=== PATIENT | female | born 1985 | race African-American/Black ===

== ENCOUNTER 2016-07-28 12:12 | Emergency (ER) | payer OTHER ==
[~2016-07-28] VITALS: Ht 170.2 cm; Wt 83.9 kg
[~2016-07-28 12:12] MED LIST: ALBUTEROL0.09 MG/A1 INH; ALDACTONE25 MG PO; ALPRAZOLAM0.5 M3 PO; AMBIEN (MONOGRAP5 MG PO; AMLODIPINE BESY10 M1 PO; AUGMENTIN 875875 MG PO; CATAPRES-TTS 11 EACH TOP; CHLORTHALIDONE25 M1 PO; CIPRO 500MG (E500 MG PO; CLARINEX 5 MG TA5 MG PO; COLACE100 MG PO; DILAUDID2 MG PO; DURAGESIC25 MCG TOP; FERROUS SULFATE65 MG PO; FIORICET 325 MG1 TAB PO; FOLIC ACID 1 MG PO; HYDROMORPHONE HC2 MG PO; IMMUNE GLOBULIN SC; IMURAN 50MG TAB50 MG PO; LABETALOL HCL200 MG PO; LISINOPRIL40 M1 PO; LUNESTA2 MG PO; METHOTREXATE25 MG/M2 INJ; MIRALAX17 GM PO; NASONEX0.05 MG/Ac NAS; OXYCODONE HYDRO10 M1 PO; OXYCODONE5 M1 PO; PERCOCET 325 MG1 TA2 PO; PREDNISONE 20MG20 MG PO; PREDNISONE10 MG PO; PREDNISONE5 MG PO; PROTONIX40 M3 PO; ROBITUSSIN W/CO10 ML PO; SPIRONOLACTONE50 MG PO; Senokot S PO; TESSALON PERLE100 MG PO; TRAMADOL HCL50 M1 PO; VITAMIN D50000 IU PO; ZOFRAN ODT4 MG SL; ZOFRAN4 M1 PO; ZOFRAN4 M1 SL
--- NOTE | 2016-07-28 13:00 | ED HEADACHE COMPLAINT ---
History of Present Illness General Chief Complaint: Headache Stated Complaint: MIGRANE Source: patient, family, old records Exam Limitations: no limitations Vital Signs & Intake/Output Vital Signs & Intake/Output ED Intake and Output 07/29 0000 07/28 1200 Intake Total 1100 Output Total Balance 1100 Intake, IV 1100 Patient 185 lb Weight Weight Reported by Patient Measurement Method Allergies Coded Allergies: glycine (From [employer] [facility]) (UNKNOWN 04/29/15) immune globulin,alpha (IgA) greater than 50 mcg/mL (From [employer] [facility]) (UNKNOWN 04/29) immune globulin,gamma (IgG) human (From [employer] [facility]) (UNKNOWN 04/29/15) zolpidem (From [facility]) (Intermediate, OUT OF IT FOR 2 DAYS 04/29/15) Reconcile Medications Amlodipine Besylate 10 MG TABLET 1 TAB PO DAILY BP (Reported) Butalb/Acetaminophen/Caffeine (Fioricet 50-300-40 MG Capsule) 50 MG-300 MG-40 MG CAPSULE 1 CAP PO Q4P PRN HEADACHE (Reported) Butalb/Acetaminophen/Caffeine (Fioricet 50-300-40 MG Capsule) 50 MG-300 MG-40 MG CAPSULE 1 TAB PO Q6HR PRN HEADACHE Chlorthalidone 25 MG TABLET 1 TAB PO DAILY BP (Reported) Clonidine Tts-1 (Catapres-Tts 1) 0.1 MG/24 HOUR PATCH.TDWK 1 PAT TOP QW BP ( Reported) Dexlansoprazole (Dexilant) 60 MG CAP.DR.BP 1 CAP PO DAILY GI (Reported) Immun Glob G(IgG)/Pro/Iga 0-50 (Hizentra 10 Gram/50 Ml Vial) 10 GRAM/50 ML (20 % ) VIAL 50 ML SC QWED AUTO IMMUNE (Reported) Lisinopril 40 MG TABLET 1 TAB PO DAILY BP (Reported) Pantoprazole Sodium (Protonix) 40 MG TABLET.DR 1 TAB PO DAILY GI (Reported) Prednisone 10 MG TABLET 1 TAB PO DAILY POLYMYOSITIS (Reported) Spironolactone (Aldactone) 25 MG TABLET 1 TAB PO DAILY BP (Reported) Tramadol HCl 50 MG TABLET 2 TAB PO BIDP PRN PAIN (Reported) Triage Note: 31 Y/O FEMALE C/O MIGRAINE HEADACHE SINCE YESTERDAY; NO RELIEF WITH 50MG TRAMADOL, TAKEN THIS MORNING SHORTLY AFTER WAKING UP. PT REPORTS NAUSEA THROUGHOUT THE DAY TODAY AND PHOTOPHOBIA. ALSO STATES SOUNDS ARE BOTHERING HER. SPEAKING CLEARLY WITH NO DEFICITS NOTED. AFEBRILE. Triage Nurses Notes Reviewed? yes Onset: Abrupt Duration: day(s): (2), constant Timing: recent history Quality/Severity: moderate, achy Severity Numbers: 9 Head Injury Location: global No Modifying Factors: none Associated Symptoms: photosensitivity, : No Patient currently breastfeeds: No HPI: This is 31-year-old female with history of migraines presents to ER for evaluation of a generalized headache nonradiating since last night. She took her tramadol last night and today without improvement. No recent fall or head trauma. Patient reports to photosensitivity nausea and loud noises make it worse. She denies loss consciousness nausea neck or back pain. She reports to nausea denies vomiting. She states this feels like her migraines in the past. No modifying factors or associated symptoms otherwise no vision changes no rashes to her skin (JACQUI RAMIREZ) Past History Travel History Traveled to [place] past 21 day No Medical History Any Pertinent Medical History? 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 Hx Contributory? No (JACQUI RAMIREZ) Review of Systems Review of Systems Constitutional: Reports: see HPI. All Other Systems: Reviewed and Negative Comments Review of systems: See HPI, All other systems negative. Constitutional, no chills no fever, no malaise HEENT: No visual changes no sore throat no congestion, no ear pain Cardiovascular: No chest pain , no palpitation Skin: no rashes, no change in skin Respiratory: No dyspnea no cough no sputum GI: No nausea no vomiting, no diarrhea, : No dysuria Muscle skeletal: No joint pain, no joint swelling, no back pain, no neck pain, Neurologic: No numbness no confusion, headache Psych: No stress Heme/endocrine: No bruising no bleeding Immunology: No lymphadenopathy (JACQUI RAMIREZ) Physical Exam Physical Exam Cranial Nerves: normal hearing, normal speech, PERRL Core Measures Severe Sepsis Present: No Septic Shock Present: No (JACQUI RAMIREZ) Progress Differential Diagnosis: cluster GIMENEZ, encephalitis, IC mass/tumor, intracranial Hem., migraine GIMENEZ, musculoskeletal pain, sinusitis, tension GIMENEZ, temporal arteritis, pseudotumor Plan of Care: Current Medications Sig/Lili Start time Last Medication Dose Stop Time Status Admin Acetaminophen 1,000 MG ONCE ONE 07/28 1245 UNVr 07/28 (Ofirmev) 07/28 1259 1256 N/A 1 UNIT (No Carrier) Diphenhydramine HCl 50 MG ONCE ONE 07/28 1245 UNVr 07/28 (Benadryl) 07/28 1246 1256 Ketorolac 30 MG ONCE ONE 07/28 1245 UNVr Tromethamine 07/28 1246 (Toradol) Metoclopramide HCl 10 MG ONCE ONE 07/28 1245 UNVr 07/28 (Reglan) 07/28 1246 1256 Sodium Chloride 1,000 ML BOLUS ONE 07/28 1245 UNVr 07/28 (Normal Saline 0.9%) 07/28 1344 1256 Patient medicated with Reglan Toradol Benadryl IV fluids stating "that's a good do anything IV morphine Repeat evaluation patient reports symptoms are not improved morphine 4 mg IV ordered IV fluids continued run case discussed with Dr. lal Patient reports to feeling improved, she is requesting go home she is feeling much better I discussed with her need to follow-up with her primary care physician's this week she states she has a neurologist in [place] whom she will follow up with prescription for fioricet provided answered all her questions she feels comfortable this plan and return precautions were discussed with patient at length. Patient denies any symptoms at this time on discharge (JACQUI RMAIREZ) Departure Departure Time of Disposition: 2 Disposition: HOME OR SELF CARE Condition: Stable Clinical Impression Primary Impression: Migraine Referrals: BHAVIN ESCOBAR,STEVE Taylor (PCP/Family) Additional Instructions: follow up with your neurologist as well as your pmd. fioricet for your headaches. continue taking your tramadol for pain. return to the er with any concerns this was sent to [facility] Departure Forms: Customer Survey General Discharge Information Prescriptions: Current Visit Scripts Butalb/Acetaminophen/Caffeine (Fioricet 50-300-40 MG Capsule) 1 TAB PO Q6HR PRN HEADACHE #12 TAB (CAROLA CAMACHO,JACQUI) PA/MARINE RESOURCE ECONOMIST Co-Sign Statement Statement: ED Attending supervision documentation- I saw and evaluated the patient. I have also reviewed all the pertinent lab results and diagnostic results. I agree with the findings and the plan of care as documented in the PA's/MARINE RESOURCE ECONOMIST's documentation. X I have reviewed the ED Record and agree with the PA's/MARINE RESOURCE ECONOMIST's documentation. [] Additions or exceptions (if any) to the PAs/MARINE RESOURCE ECONOMIST's note and plan are summarized below: [] (GENARO ESCOBAR,RIDDHI)
[2016-07-28] MEDS ORDERED: DEXILANT60 M1 PO (14:29)
[2016-07-28] MEDS ORDERED: FIORICET 50-301 EACH PO ×2 (14:31→16:03)
[2016-07-28] MEDS ORDERED: PREDNISONE10 M2 PO (14:34)
[2016-07-28 16:07] VITALS: BP 164/110
[2016-08-18] MEDS ORDERED: VITAMIN D2000 UNIT PO (18:53)
== END 2016-07-28 16:13 ==
LOC: ERH 12:12
DX: G43.909 Migraine, unspecified, not intractable, without status migrainosus (principal)
CPT/HCPCS: 96374; 96375; J0131; J1200; J1885; J2765; J2930

== ENCOUNTER 2017-03-18 11:27 | Emergency (ER) | payer OTHER ==
[~2017-03-18] VITALS: Ht 172.7 cm; Wt 107.0 kg
[~2017-03-18 11:27] MED LIST changes: +DEXILANT60 M1 PO; +FIORICET 50-301 EACH PO; +OXYCODONE-ACET1 EACH PO; +PREDNISONE10 M2 PO; +VITAMIN D2000 UNIT PO; +ZOFRAN ODT4 M1 PO
--- NOTE | 2017-03-18 12:16 | ED CARDIAC/CP/PALPITATIONS ---
History of Present Illness General Chief Complaint: General Adult Stated Complaint: SIB MD FOR SOB PER PT CHEST FEELS HEAVY Source: patient Exam Limitations: no limitations Vital Signs & Intake/Output Vital Signs & Intake/Output Vital Signs Date Time Temp Pulse Resp B/P B/P Pulse O2 O2 Flow FiO2 Mean Ox Delivery Rate 03/18 1621 141 20 137/88 99 Room Air Room Air 03/18 1620 98.8 141 20 137/88 03/18 1415 136 18 144/94 98 Room Air 03/18 1330 98.8 124 18 126/85 100 Room Air 03/18 1146 99.2 139 20 122/81 99 Room Air 03/18 1131 79 95 Room Air Allergies Coded Allergies: glycine (From [facility]) (UNKNOWN 08/18/16) immune globulin,alpha (IgA) greater than 50 mcg/mL (From [facility]) (UNKNOWN 08/18) immune globulin,gamma (IgG) human (From [facility]) (UNKNOWN 08/18/16) zolpidem (From [facility]) (Intermediate, OUT OF IT FOR 2 DAYS 08/18/16) Reconcile Medications Labetalol HCl (Unknown Strength) TABLET (Unknown Dose) PO BID HEART (Reported ) Vit No.130/Iron/FA ( Tablet) 27 MG IRON-800 MCG TABLET 1 TAB PO DAILY (Reported) Tramadol HCl 50 MG TABLET 2 TAB PO BIDP PRN PAIN (Reported) Triage Note: PT STATES SHE HAS BEEN FEELING SOB AND HER HEART POUNDING. EKG IN TRIAGE NOTED TO BE A-FIB HR IN THE 140'S PT PLACED IN ROOM 6. NO HX OF HEART PROBLEMS Triage Nurses Notes Reviewed? yes Onset: Abrupt Duration: constant Timing: recent history Quality/Severity: moderate, pressure Location: substernal Activities at Onset: none : Yes Patient currently breastfeeds: No HPI: Patient is a 32-year-old female with a past medical history of hypertension who is compliant with labetalol and chronic pain currently on tramadol since emergency room saying that at rest yesterday patient had acute onset of heart palpitations chest heaviness and shortness of breath symptoms that persist for past 24 hours Patient does state that yesterday she had a routine follow-up with her OB who is out of [facility] however her symptoms began after this appointment, Patient denies any fevers chills hemoptysis or leg swelling abdominal pain nausea vomiting dysuria vaginal bleeding Patient has never had similar episodes of symptoms in the past (Silvio Geller) Past History Travel History Traveled to [place] past 21 day No Medical History Any Pertinent Medical History? 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 Hx Contributory? No (Silvio Geller) Review of Systems Review of Systems Constitutional: Reports: no symptoms. EENTM: Reports: no symptoms. Respiratory: Reports: see HPI. Cardiovascular: Reports: see HPI. GI: Reports: no symptoms. Genitourinary: Reports: no symptoms. Musculoskeletal: Reports: no symptoms. Skin: Reports: no symptoms. Neurological/Psychological: Reports: no symptoms. Hematologic/Endocrine: Reports: no symptoms. Immunologic/Allergic: Reports: no symptoms. All Other Systems: Reviewed and Negative (Silvio Geller) Physical Exam Physical Exam General Appearance: no apparent distress, alert Head: atraumatic Eyes: Bilateral: normal appearance, PERRL. Ears, Nose, Throat: normal pharynx, normal ENT inspection Neck: normal inspection Respiratory: normal breath sounds, chest non-tender, no respiratory distress Cardiovascular: tachycardia, irregularly irregular Peripheral Pulses: 2+ radial (R) Gastrointestinal: normal bowel sounds, soft, non-tender Extremities: normal inspection, normal capillary refill, normal range of motion, no edema Skin: intact, normal color, warm/dry Core Measures ACS in differential dx? Yes CVA/TIA Diagnosis No Sepsis Present: No Sepsis Focused Exam Completed? No (Silvio Geller) Progress Differential Diagnosis: AMI, aortic dissection, atrial fibrillation, cholecystitis, CHF/pulm edema, costochondritis, hyperkalemia, hypovolemia, hyperthyroid, hyperventilation, intracranial hemorrhage, musculoskeletal pain, myocarditis, pancreatitis, pericarditis, pneumonia, pneumothorax, PSVT, pulmonary embolism, PUD/GERD, PVCs/PACs, respiratory failure, rib fracture, sepsis, unstable angina, V-fib/V-Tach, WPW syndrome, POLYMYOSCITIS Plan of Care: Orders Procedure Date/time Status Regular Diet 03/18 D Active Pathway - chart 03/18 1450 Active House Staff 03/18 1450 Active Patient Data 03/18 1450 Active Code Status 03/18 1450 Active Add-on Test (ER Only) 03/18 1448 Active Misc Message 03/18 1431 Active ED Holding Orders 03/18 1431 Active Vital Signs 03/18 1431 Active Code Status 03/18 1431 Complete Patient Data 03/18 1420 Active Intake & Output 03/18 1417 Active URINALYSIS 03/18 1405 Complete TROPONIN LEVEL 03/18 1400 Complete LDH (LACT ACID DEHYDROGENASE) 03/18 1400 Complete COMPREHENSIVE METABOLIC PANEL 03/18 1400 Complete CREATINE PHOSPHOKINASE 03/18 1400 Complete Telemetry/Supervisor Propellant Charge Loading 03/18 1338 Active THYROID STIMULATING HORMONE 03/18 1338 Complete FREE T4 03/18 1338 Complete PARTIAL THROMBOPLASTIN TIME 03/18 1337 Complete PROTHROMBIN TIME 03/18 1337 Complete D-DIMER 03/18 1337 Complete RAPID VIRAL INFLUENZA A 03/18 1320 Active CBC WITHOUT DIFFERENTIAL 03/18 1320 Complete EKG 03/18 1320 Active EKG 03/18 1129 Active VTE Mechanical Prophylaxis 03/18 UNK Active Telemetry/Supervisor Propellant Charge Loading 03/18 UNK Active OB: Monitoring 03/18 UNK Active Laboratory Tests 03/18/17 1430: Urinalysis LIGHT H, Urine Color YEL, Urine Clarity HAZY H, Urine pH 7.5, Ur Specific [place] 1.020, Urine Protein NEG, Urine Ketones NEG, Urine Nitrite NEG, Urine Bilirubin NEG, Urine Urobilinogen 0.2, Ur Leukocyte Esterase SMALL H, Ur Microscopic SEDIMENT EXAMINED, Urine RBC 1-3, Urine WBC 3-5 H, Ur Epithelial Cells MANY H, Urine Bacteria FEW H, Urine Mucus RARE, Urine Hemoglobin NEG, Urine Glucose NEG 03/18/17 1400: Anion Gap 12, Estimated GFR > 60, BUN/Creatinine Ratio 12.0, Glucose 89, Calcium 8.6, Total Bilirubin 0.3, AST 40 H, ALT 51, Alkaline Phosphatase 78, Lactate Dehydrogenase 719 H, Creatine Kinase 910 H, Troponin I 0.02, Total Protein 6.3 , Albumin 3.3 L, Globulin 3.0, Albumin/Globulin Ratio 1.1, TSH 2.890, Free T4 0.62 L, PT 11.2, INR 1.07, APTT 29, D-Dimer High Sensitivty < 200, CBC w Diff NO MAN DIFF REQ, RBC 4.15 L, MCV 91.1, MCH 31.2 H, RDW 14.4, MPV 9.2, Gran % 70.3, Lymphocytes % 21.3, Monocytes % 6.5, Eosinophils % 1.6, Basophils % 0.3, Absolute Granulocytes 4.8, Absolute Lymphocytes 1.4, Absolute Monocytes 0.4, Absolute Eosinophils 0.1, Absolute Basophils 0, PUBS MCHC 34.3 03/18/17 1320: Sodium Cancelled, Potassium Cancelled, Chloride Cancelled, Carbon Dioxide Cancelled, Anion Gap Cancelled, BUN Cancelled, Creatinine Cancelled, BUN/ Creatinine Ratio Cancelled, Glucose Cancelled, Calcium Cancelled, Total Bilirubin Cancelled, AST Cancelled, ALT Cancelled, Alkaline Phosphatase Cancelled, Troponin I Cancelled, Total Protein Cancelled, Albumin Cancelled, Globulin Cancelled, Albumin/Globulin Ratio Cancelled Microbiology 03/18 1320 NASOPHARYN: Influenza Virus A & B Rapid Smear - ORD On initial examination patient was resting comfortably at bedside patient after initial EKG showed concerns of rapid atrial fibrillation and was patient was initially admitted associated IV fluid resuscitation repeat EKG shows persistent atrial fibrillation Discussed patient with Dr. Coleman who advised that in the emergency room that no pharmacological or cardioversion intervention to be done at this time He also advised to The d-dimer be evaluated and if elevated patient to receive bilateral Doppler ultrasounds which the d-dimer was negative in the emergency room, telemetry initially was placed patient was advised to be admitted under Dr. Coleman's service Again prior to admission in the emergency room he advised not to have pharmacological intervention be admitted administered to patient Discussed disposition plan with Dr. Phoenix who also evaluated the patient is aware Discussed admission with patient was aware and has no questions and agrees Initial ED EKG: ATRIAL FIBRILLATION, 141 BPM, Repeat EKG: unchanged (Silvio Geller) Comments: 03/18/2017 5:06:34 PM patient is being transferred to [facility] of the request of Dr. Colmean given the and associated complication of rapid atrial fibrillation. (Lizett ESCOBAR,Radhames Payne) Departure Departure Disposition: STILL A PATIENT Condition: Guarded Clinical Impression Primary Impression: Rapid atrial fibrillation Secondary Impressions: Chest pain Referrals: Kojo ESCOBAR,Nandini Taylor (PCP/Family) Departure Forms: Customer Survey General Discharge Information Admission Note Spoke With: Jared ESCOBAR PHD,Reynaldo Taylor Documentation of Exam: Documentation of any treatments & extenuating circumstances including Concerns Regarding Discharge (functional status, medication knowledge or non-compliance, living conditions, etc.) that warrant an admission rather than observation: [ Patient requires telemetry admission repeat labs repeat EKG IV fluid resuscitation possible anticoagulation or cardioversion repeat troponin cardiology consultation PAPER NOVELTY MAKER consultation] (Silvio Geller) PA/DISABILITY REPRESENTATIVE Co-Sign Statement Statement: ED Attending supervision documentation- [x] I saw and evaluated the patient. I have also reviewed all the pertinent lab results and diagnostic results. I agree with the findings and the plan of care as documented in the PA's/DISABILITY REPRESENTATIVE's documentation. Patient presents for evaluation of dyspnea, chest heaviness and palpitations. Physical examination reveals a rapid irregular heart rate. Patient is also . [] I have reviewed the ED Record and agree with the PA's/DISABILITY REPRESENTATIVE's documentation. [] Additions or exceptions (if any) to the PAs/DISABILITY REPRESENTATIVE's note and plan are summarized below: [] (Lizett ESCOBAR,Radhames Payne) Critical Care Note Critical Care Note Critical Care Time: 30-74 min (Silvio Geller)
[2017-03-18] MEDS ORDERED: LABETALOL HCL200 M1 PO (12:52)
[2017-03-18] MEDS ORDERED: PRENATAL TABLE1 EAC2 PO (12:53)
[2017-03-18 14:23] LABS: ABSOLUTE BASOPHIL COUNT 0 /CUMM (0.0-0.2); ABSOLUTE EOSINOPHIL COUNT 0.1 /CUMM (0.0-0.7); ABSOLUTE GRANULOCYTE CT 4.8 /CUMM (1.4-6.5); ABSOLUTE LYMPH COUNT 1.4 /CUMM (1.2-3.4); ABSOLUTE MONOCYTE COUNT 0.4 /CUMM (0.10-0.60); BASOPHIL % 0.3 % (0.0-2.0); EOSINOPHIL % 1.6 % (0-5); GRANULOCYTE % 70.3 % (42.2-75.2); HEMATOCRIT 37.8 % (37-47); MEAN CORPUSCULAR HGB 31.2 PG (27.0-31.0); MEAN CORPUSCULAR HGB CONC 34.3 G/DL (33.0-37.0); MEAN CORPUSCULAR VOLUME 91.1 FL (81.0-99.0); MEAN PLATELET VOLUME 9.2 FL (7.4-10.4); PLATELET COUNT 203 /CUMM (130-400); RBC DISTRIBUTION WIDTH 14.4 % (11.5-14.5); RED BLOOD CELL CT 4.15 /CUMM (4.20-5.40); WHITE BLOOD CELL COUNT 6.8 /CUMM (4.8-10.8)
[2017-03-18 14:27] LABS: PT 11.2 SEC (9.4-12.5); PTT 29 SEC (25-37)
--- NOTE | 2017-03-18 14:36 | History & Physical ---
[facility] Information and [facility] Statement: I have seen and personally examined LUCHO FLORES and documented this H&P. The patient is a 32 year old F who presented with a patient stated chief complaint of [TACHYCARDIA]. Source of Information: patient Exam Limitations: no limitations History of Present Illness: Patient is a 32-year-old female with significant past medical history of hypertension, autoimmune disorder, presented with chief complaints of palpitation, shortness of breath, fainting spells since last 1 day. 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 She was completely comfortable and evaluation at the office was completely normal. Afterwards she started feeling palpitation, shortness of breath, generalized weakness with fainting spells. She went to the mall, afterwards, but she was not able to cope with herself. The palpitation was constant, associated with shortness of breath. She did not tried any medicine and rested at home. She slept well without any difficulty, though she was not able to lie flat. After waking up in the morning she still had palpitation and weakness. So she came to the [facility]. Of note, she is having history of Sjogrens syndrome, and was on azathioprine, which she is not using since last 30 days. Her probation and parole officer is aware about that. She constantly have back pain and was told to have prolapse vertebral disc. She is on tramadol for pain. She denies for any abdominal cramps, bleeding from the vagina, nausea, vomiting, fever, chills, chest pain. Personal history -she lives with the family. Denies smoking, alcohol abuse, illicit drug abuse. Obstretric history -she is 3, para 2. Denies for any / miscarriage. She had history of preeclampsia during her first ,needed delivery. Past medical history of- Sjogrens syndrome Migraine headache Hypertension Polymyositis(2011)-followed by Dr. Alesia Mcbride -treated by prednisone/ methotrexate 20 mgs once a week and even needed IVIG, which resulted in a septic meningitis(2013), Rituximab; Hyzintra(Azthioprine) Rayanauds phenomena -Nitroglycerine oint GERD Fibromyalgia Lupus Following pain management clinic for generalized bodyache Allergies/Medications Allergies: Coded Allergies: glycine (From [employer]) (UNKNOWN 08/18/16) immune globulin,alpha (IgA) greater than 50 mcg/mL (From [employer]) (UNKNOWN 08/18) immune globulin,gamma (IgG) human (From [employer]) (UNKNOWN 08/18/16) zolpidem (From Ambien) (Intermediate, OUT OF IT FOR 2 DAYS 08/18/16) Home Med list Labetalol HCl (Unknown Strength) TABLET (Unknown Dose) PO BID HEART (Reported ) Vit No.130/Iron/FA ( Tablet) 27 MG IRON-800 MCG TABLET 1 TAB PO DAILY (Reported) Tramadol HCl 50 MG TABLET 2 TAB PO BIDP PRN PAIN (Reported) Past History Travel History Traveled to [place] past 21 day No Medical History Neurological: MIGRAINES ASEPTIC MENINGITIS EENT: NONE Cardiovascular: hypertension Respiratory: NONE Gastrointestinal: NONE Hepatic: NONE Renal: NONE Musculoskeletal: fibromyalgia Psychiatric: NONE Endocrine: RAYNAUDS Blood Disorders: LUPUS, REYNAUDS, POLYMYOSITIS,DERMATOMYOSI TIS DERMATITIS IMMUNE DISORDER Cancer(s): NONE 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 Psychosocial History Who Do You Live With? child Services at Home: None Primary Language: Romanian ETOH Use: denies use Illicit Drug Use: denies illicit drug use Functional Ability ADLs Independent: dressing, eating, toileting, bathing. Ambulation: independent IADLs Independent: shopping, housework, finances, food prep, telephone, transportation , medication admin. Review of Systems Review of Systems Constitutional: Reports: no symptoms, malaise, weakness. Cardiovascular: Reports: orthopena, palpitations, syncope. Respiratory: Reports: short of breath. Genitourinary: Reports: no symptoms. Musculoskeletal: Reports: back pain. Skin: Reports: no symptoms. Neurological/Psychological: Reports: paresthesia. Denies: confusion, numbness. Exam & Diagnostic Data Last 24 Hrs of Vital Signs/I&O Vital Signs Date Time Temp Pulse Resp B/P B/P Pulse O2 O2 Flow FiO2 Mean Ox Delivery Rate 03/18 1415 136 18 144/94 98 Room Air 03/18 1330 98.8 124 18 126/85 100 Room Air 03/18 1146 99.2 139 20 122/81 99 Room Air 03/18 1131 79 95 Room Air Intake & Output 03/18 1600 03/18 0800 03/18 0000 Intake Total Output Total 250 Balance -250 Output, Urine 250 Patient 107.048 kg Weight Weight Reported by Patient Measurement Method Physical Exam General Appearance Alert, Oriented X3, Cooperative, No Acute Distress Skin No Rashes, No Breakdown, No Significant Lesion HEENT Atraumatic, PERRLA, EOMI Neck No JVD, increased neck pulsation Cardiovascular Normal S1, Normal S2, Gallops, irregular rate Lungs Clear to Auscultation, Normal Air Movement Abdomen Soft, distended, movements were felt. Neurological Normal Speech, Normal Tone, Sensation Intact, Cranial Nerves 3-12 NL, Reflexes 2+ Extremities No Clubbing, No Cyanosis, No Edema, Normal Pulses Vascular Normal Pulses, Pulses Symmetrical Last 24 Hrs of Labs/Gordon: Laboratory Tests 03/18/17 1430: Urine Color Pending, Urine Clarity Pending, Urine pH Pending, Ur Specific [place] Pending, Urine Protein Pending, Urine Ketones Pending, Urine Nitrite Pending, Urine Bilirubin Pending, Urine Urobilinogen Pending, Ur Leukocyte Esterase Pending, Ur Microscopic Pending, Urine Hemoglobin Pending, Urine Glucose Pending 03/18/17 1400: Sodium Pending, Potassium Pending, Chloride Pending, Carbon Dioxide Pending, Anion Gap Pending, BUN Pending, Creatinine Pending, BUN/Creatinine Ratio Pending , Glucose Pending, Calcium Pending, Total Bilirubin Pending, AST Pending, ALT Pending, Alkaline Phosphatase Pending, Troponin I Pending, Total Protein Pending , Albumin Pending, Globulin Pending, Albumin/Globulin Ratio Pending, TSH Pending , Free T4 Pending, PT 11.2, INR 1.07, APTT 29, D-Dimer High Sensitivty < 200, CBC w Diff NO MAN DIFF REQ, RBC 4.15 L, MCV 91.1, MCH 31.2 H, RDW 14.4, MPV 9.2, Gran % 70.3, Lymphocytes % 21.3, Monocytes % 6.5, Eosinophils % 1.6, Basophils % 0.3, Absolute Granulocytes 4.8, Absolute Lymphocytes 1.4, Absolute Monocytes 0.4, Absolute Eosinophils 0.1, Absolute Basophils 0, PUBS MCHC 34.3 03/18/17 1320: Sodium Cancelled, Potassium Cancelled, Chloride Cancelled, Carbon Dioxide Cancelled, Anion Gap Cancelled, BUN Cancelled, Creatinine Cancelled, BUN/ Creatinine Ratio Cancelled, Glucose Cancelled, Calcium Cancelled, Total Bilirubin Cancelled, AST Cancelled, ALT Cancelled, Alkaline Phosphatase Cancelled, Troponin I Cancelled, Total Protein Cancelled, Albumin Cancelled, Globulin Cancelled, Albumin/Globulin Ratio Cancelled Microbiology 03/18 1320 NASOPHARYN: Influenza Virus A & B Rapid Smear - ORD Assessment/Plan Assessment: Patient is a 32-year-old female with significant past medical history of hypertension, autoimmune disorder, currently in third trimester(28 weeks ) presented with chief complaints of palpitation, shortness of breath, fainting spells since last 1 day. ED course -patient was having palpitation and findings spells while normal activity. On examination, chest bilateral clear, heart S1, S2 normal, no bilateral extremity edema, abdomen distended, activity noted. Blood workup shows blood count within normal limits, electrolyte was within normal limits, thyroid profile shows TSH 2.890, free T4 .62, urine showed WBC 3-5, coagulation profile was normal, d-dimer less than 200. EKG was done which showed evidence of atrial fibrillation with increased heart rate in 140bpm.It was decided to admit the patient into telemetry floor for further evaluation and management. Discuss with Dr. Coleman, and decided to stop labetalol and give injection Lopressor 5 milligrams IV. Her right heart rate came down from 140 to 126. She felt improved, though remained in persistent atrial fibrillation. As the patient was following [facility], for a high-risk and she was well evaluated yesterday.She started having her symptoms afterwards.We contacted Dr. Moses.The evaluation was done which showed the heart rate is 140-160, and there was constant change/arrhythmia. It was decided that patient need constant monitoring, in a high risk unit which is not available at [facility]. We discussed Dr. TODD, [employer] resident over the phone, through [employer]. We transferred the patient to [facility] high-risk unit. As Ranked By This Provider Problem List: 1. Atrial fibrillation 2. cardiac arrhythmia Core Measures/Misc (11/21) Acute Coronary Syndrome ACS Diagnosis: No Congestive Heart Failure Congestive Heart Failure Diagnosis No Cerebrovascular Accident CVA/TIA Diagnosis: No VTE (View Protocol) VTE Risk Factors / No Mechanical VTE Prophylaxis d/t N/A MechProphylax Ordered No VTE Pharm Prophylaxis d/t Other Sepsis (View protocol) Sepsis Present: No
--- NOTE | 2017-03-18 17:14 | Cons- Cardiology ---
General Information and HPI Consulting Request Date of Consult: 03/18/17 Requested By: Jared ESCOBAR PHD,Reynaldo Taylor History of Present Illness: This patient is a 32 year old female with history of hypertension, rheumatoid arthritis, Sjogren's syndrome and fibromyalgia who presented to [facility] with rapid palpitations, lightheadedness and mild shortness of breath. She also has mild chest tightness. She was discovered to be in atrial fibrillation with increased heart rate in the 140bpm range. The patient is 28 weeks and and has [facility] . The patient is confident that her symptoms began yesterday and she has not noted any abnormalities related to her . We contacted Dr Moses of [facility] to offer guidance and it was felt that this patient should be sent to [facility], high risk department for further care. It was felt that beta blockers were okay to use and a small dose of Lopressor 5mg IV was given to help control her heart rate. The patient feels improved but remains in atrial fibrillation. Allergies/Medications Allergies: Coded Allergies: glycine (From [employer]) (UNKNOWN 08/18/16) immune globulin,alpha (IgA) greater than 50 mcg/mL (From [employer]) (UNKNOWN 08/18) immune globulin,gamma (IgG) human (From [employer]) (UNKNOWN 08/18/16) zolpidem (From Ambien) (Intermediate, OUT OF IT FOR 2 DAYS 08/18/16) Home Med List: Labetalol HCl (Unknown Strength) TABLET (Unknown Dose) PO BID HEART (Reported ) Vit No.130/Iron/FA ( Tablet) 27 MG IRON-800 MCG TABLET 1 TAB PO DAILY (Reported) Tramadol HCl 50 MG TABLET 2 TAB PO BIDP PRN PAIN (Reported) Review of Systems Review of Systems: A review of systems is unremarkable. 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 Psychosocial History Who Do You Live With? child Services at Home: None Primary Language: Vietnamese ETOH Use: denies use Illicit Drug Use: denies illicit drug use Functional Ability ADLs Independent: dressing, eating, toileting, bathing. Ambulation: independent IADLs Independent: shopping, housework, finances, food prep, telephone, transportation , medication admin. Exam & Diagnostic Data Vital Signs and I&O Vital Signs Date Time Temp Pulse Resp B/P B/P Pulse O2 O2 Flow FiO2 Mean Ox Delivery Rate 03/18 1621 141 20 137/88 99 Room Air Room Air 03/18 1620 98.8 141 20 137/88 03/18 1415 136 18 144/94 98 Room Air 03/18 1330 98.8 124 18 126/85 100 Room Air 03/18 1146 99.2 139 20 122/81 99 Room Air 03/18 1131 79 95 Room Air Intake & Output 03/18 1600 03/18 0800 03/18 0000 03/17 1600 03/17 0800 03/17 0000 Intake Total Output Total 250 Balance -250 Output, Urine 250 Patient 236 lb Weight Weight Reported by Patient Measurement Method Physical Exam: General: WD/WN female in NAD; alert and oriented x 3 HEENT: NC/AT, PERRL, EOMI Neck: no JVD, no carotid bruit Heart: irregularly irregular w/o murmur Lungs: clear bilaterally Abdomen: soft, NT, +ve bowl sounds, Extremities: no edema Assessment/Plan Assessment/Plan * This patient has atrial fibrillation that likely began no more than 24 hours ago. She does have an increased heart rate but improved to the approximate 115bpm range with 5mg of IV lopressor and she feels improved. The patient will need additional therapy and may be served by using Sotalol a class B beta alena that may be effective in both rate control and cardioversion. This is a drug that could result in bradycardia or arrhythmia in the fetus however and should be used with monitoring in a high risk unit which is not available here. We will transfer this patient to the [facility] at this time. This patient's case was discussed with the OB resident. Consult Acknowledgment - Thank you for your consult request.
[2017-03-18 17:20] VITALS: BP 143/96
== END 2017-03-18 17:42 | disposition short-term general hospital (02) ==
LOC: ERH 11:27 → ERHI 14:31 → ENRESERV 15:31 → CANRESERV 15:31 → ERH 17:42 → CMPBEDREQ 03-19 08:44
PROVIDERS: Physician Assistant
DX: I48.91 Unspecified atrial fibrillation (principal); R07.9 Chest pain, unspecified; I10 Essential (primary) hypertension; M32.9 Systemic lupus erythematosus, unspecified; I73.00 Raynaud's syndrome without gangrene
CPT/HCPCS: 81001; 87804; 87804-59; 93005; 93010; 96374

== ENCOUNTER 2017-04-04 12:07 | Emergency (ER) | payer OTHER ==
[~2017-04-04 12:07] MED LIST changes: +LABETALOL HCL200 M1 PO; +PRENATAL TABLE1 EAC2 PO
== END 2017-04-04 12:25 | disposition admitted as inpatient to this hospital (09) ==
LOC: ERH 12:07
DX: R00.2 Palpitations (principal)
CPT/HCPCS: 93005; 93010; 99281

== ENCOUNTER 2017-08-03 12:55 | Emergency (ER) | payer OTHER ==
[~2017-08-03] VITALS: Ht 172.7 cm; Wt 98.0 kg
[2017-08-03 14:02] LABS: ABSOLUTE BASOPHIL COUNT 0 /CUMM (0.0-0.2); ABSOLUTE EOSINOPHIL COUNT 0.1 /CUMM (0.0-0.7); ABSOLUTE GRANULOCYTE CT 3.2 /CUMM (1.4-6.5); ABSOLUTE LYMPH COUNT 1.9 /CUMM (1.2-3.4); ABSOLUTE MONOCYTE COUNT 0.4 /CUMM (0.10-0.60); BASOPHIL % 0.5 % (0.0-2.0); EOSINOPHIL % 2.5 % (0-5); GRANULOCYTE % 57.3 % (42.2-75.2); HEMATOCRIT 43.2 % (37-47); MEAN CORPUSCULAR HGB 27.8 PG (27.0-31.0); MEAN CORPUSCULAR HGB CONC 33.1 G/DL (33.0-37.0); MEAN CORPUSCULAR VOLUME 84.2 FL (81.0-99.0); MEAN PLATELET VOLUME 8.9 FL (7.4-10.4); PLATELET COUNT 273 /CUMM (130-400); RED BLOOD CELL CT 5.13 /CUMM (4.20-5.40); WHITE BLOOD CELL COUNT 5.7 /CUMM (4.8-10.8)
--- NOTE | 2017-08-03 16:47 | ED GI/GU/ABDOMINAL COMPLAINT ---
History of Present Illness General Chief Complaint: Abdominal Pain/Flank Pain Stated Complaint: ABDOMEN AND LOWER BACK PAIN Source: patient Exam Limitations: no limitations Vital Signs & Intake/Output Vital Signs & Intake/Output Vital Signs Date Time Temp Pulse Resp B/P B/P Pulse O2 O2 Flow FiO2 Mean Ox Delivery Rate 08/03 1748 99 Room Air 08/03 1713 75 18 158/104 99 Room Air 08/03 1559 98.7 80 18 124/82 96 Room Air 08/03 1308 98.8 97 20 160/110 96 Room Air Allergies Coded Allergies: glycine (From Gamunex) (UNKNOWN 08/18/16) immune globulin,alpha (IgA) greater than 50 mcg/mL (From Gamunex) (UNKNOWN 08/18) immune globulin,gamma (IgG) human (From Gamunex) (UNKNOWN 08/18/16) zolpidem (From Ambien) (Intermediate, OUT OF IT FOR 2 DAYS 08/18/16) Triage Note: C/O R SIDED BACK PAIN X 4 DAYS, NOW RADIATING TO MID ABDOMEN WITH PALPITATIONS, NAUSEA. DENIES URINARY SXS. PMH: POLYMYOSITIS. LMP: 06/22 Triage Nurses Notes Reviewed? yes ? n Is pt currently ? No Onset: Gradual Duration: day(s): Quality/Severity: moderate Severity Numbers: 7 Location: right flank HPI: 32yo female with hx of polymyositis, fibromyalgia, restrictive lung disease, a fib presents to ED complaining of right lower back pain beginning 4 days ago. Patient reports gradual onset of pain over the last 4 days. Patient also reports right lower abdominal pain beginning today. Patient reports pain is 7/10, constant, aching, worse with movement. Patient also reports intermittent fevers and chills. She denies chest pain, dyspnea, diarrhea, constipation, nausea, vomiting. Patient is 2 months post . (Zuleika CAMACHO,Alma Blair) Reconcile Medications Ciprofloxacin HCl (Cipro) 500 MG TABLET 1 TAB PO BID pyelonephritis Labetalol HCl (Unknown Strength) TABLET (Unknown Dose) PO BID HEART (Reported ) Tramadol HCl 50 MG TABLET 2 TAB PO BIDP PRN PAIN (Reported) (Cesar Ellison DO) Past History Travel History Traveled to [place] past 21 day No Medical History Any Pertinent Medical History? see below for history Neurological: MIGRAINES ASEPTIC MENINGITIS EENT: NONE Cardiovascular: hypertension Respiratory: NONE Gastrointestinal: NONE Hepatic: NONE Renal: NONE Musculoskeletal: fibromyalgia Psychiatric: NONE Endocrine: RAYNAUDS Blood Disorders: LUPUS, REYNAUDS, POLYMYOSITIS,DERMATOMYOSI TIS DERMATITIS IMMUNE DISORDER Cancer(s): NONE IRRIGATOR VALVE PIPE/Reproductive: NONE Other Medical Hx: Polymyositis History of MRSA: No History of VRE: No History of CDIFF: No Surgical History Surgical History: non-contributory, N Psychosocial History Who do you live with Other (see notes) Services at Home None What is your primary language Armenian Tobacco Use: Never used ETOH Use: occasional use Family History Family History, If Any: MOTHER (2 aunts have hx breast ca.mom has hx hypothyroidism). Hx Contributory? No (Alma Murcia) Review of Systems Review of Systems Constitutional: Reports: see HPI. EENTM: Reports: no symptoms. Respiratory: Reports: no symptoms. Cardiovascular: Reports: no symptoms. GI: Reports: see HPI. Genitourinary: Reports: see HPI. Musculoskeletal: Reports: no symptoms. Skin: Reports: no symptoms. Neurological/Psychological: Reports: no symptoms. Hematologic/Endocrine: Reports: no symptoms. Immunologic/Allergic: Reports: no symptoms. All Other Systems: Reviewed and Negative (lAma Murcia) Physical Exam Physical Exam General Appearance: well developed/nourished, no apparent distress, alert, awake Head: atraumatic, normal appearance Eyes: Bilateral: normal appearance. Ears, Nose, Throat, Mouth: hearing grossly normal, moist mucous membrane Neck: normal inspection, supple, full range of motion Respiratory: normal breath sounds, no respiratory distress, lungs clear Cardiovascular: regular rate/rhythm Gastrointestinal: normal bowel sounds, soft, no organomegaly, RUQ, RLQ tenderness, right sided pain with active flexion of abdominal muscles Back: normal range of motion, right CVA tenderness Extremities: normal range of motion Neurologic/Psych: awake, alert, oriented x 3 Skin: intact, normal color, warm/dry Core Measures ACS in differential dx? No Sepsis Present: No Sepsis Focused Exam Completed? No (Alma Murcia) Progress Differential Diagnosis: appendicitis, bowel obstruction, cholecystitis, diverticulitis, gastritis, hernia, kidney stone, SBO, UTI/pyelo Plan of Care: Orders Procedure Date/time Status Add-on Test (ER Only) 08/03 1713 Active Saline Lock 08/03 1555 Active Add-on Test (ER Only) 08/03 1554 Active CULTURE,URINE 08/03 142 Active URINE 08/03 1426 Complete URINALYSIS 08/03 1316 Complete TROPONIN LEVEL 08/03 1316 Complete CBC WITHOUT DIFFERENTIAL 08/03 1316 Complete BASIC METABOLIC PANEL 08/03 1316 Complete EKG 08/03 1314 Active Laboratory Tests 08/03/17 1426: Urine Color YEL, Urine Clarity HAZY H, Urine pH 6.0, Ur Specific [place] 1.020, Urine Protein TRACE H, Urine Ketones NEG, Urine Nitrite NEG, Urine Bilirubin NEG, Urine Urobilinogen 1.0, Ur Leukocyte Esterase MOD H, Ur Microscopic SEDIMENT EXAMINED, Urine RBC 1-3, Urine WBC 25-50 H, Ur Epithelial Cells MOD H , Urine Bacteria MANY H, Urine Hemoglobin MOD H, Urine Glucose NEG, Urine Test NEGATIVE 08/03/17 1320: Anion Gap 13, Estimated GFR > 60, BUN/Creatinine Ratio 7.1, Glucose 92, Calcium 9.7, Troponin I 0.01, CBC w Diff NO MAN DIFF REQ, RBC 5.13, MCV 84.2, MCH 27.8, MCHC 33.1, RDW 17.0 H, MPV 8.9, Gran % 57.3, Lymphocytes % 33.2, Monocytes % 6.5, Eosinophils % 2.5, Basophils % 0.5, Absolute Granulocytes 3.2, Absolute Lymphocytes 1.9, Absolute Monocytes 0.4, Absolute Eosinophils 0.1, Absolute Basophils 0 Microbiology 08/03 1426 URINE ROUT: Urine Culture - RECD Patient has evidence of infection on UA. This finding in combination with right -sided CVA tenderness and her reported fevers and chills at home is suggestive of pyelonephritis. Patient has no abnormal findings on CT scan. Appendix visualized and is normal. Patient's abdominal pain is exacerbated by movement, likely related to muscle strain from her recent delivery. Patient's urine sent for culture. Patient was given strict return precautions. Patient to follow up with primary care doctor. Patient hypertensive in the emergency room and however she has a history of hypertension, has had similar blood pressure and previous visits here in the emergency department. Patient's delivery was 2 months ago, her symptoms are not consistent with preeclampsia. The patient is in no acute distress, nontoxic appearing. The patient agrees with the plan of care. Diagnostic Imaging: Viewed by Me: CT Scan. Discussed w/RAD: CT Scan. Radiology Impression: PATIENT: LUCHO FLORES PRESENT AGE: 32 PATIENT ACCOUNT NO: [id number] : 87 LOCATION: [facility] ORDERING PHYSICIAN: Radhames Robert DO SERVICE DATE: 08/03/174608 EXAM TYPE: CAT - CT ABD & PELVIS W IV CONTRAST EXAMINATION: CT ABDOMEN AND PELVIS WITH CONTRAST CLINICAL INFORMATION: Right lower quadrant pain. COMPARISON: CT abdomen 05/01/2015. CT scan abdomen pelvis 11/02/2014. TECHNIQUE: Multidetector volumetric imaging was performed of the abdomen and pelvis following IV administration of 95 mL of Optiray 320 intravenous contrast. Sagittal and coronal reformatted images were obtained on the technologist's workstation. DLP: 504.87 mGy-cm FINDINGS: LUNG BASES: The visualized lung bases are unremarkable. LIVER, GALLBLADDER, AND BILIARY TREE: The liver is normal in size, shape, and attenuation. No focal hepatic lesion or biliary ductal dilatation is present. The gallbladder is unremarkable with no evidence of radiopaque gallstones, gallbladder wall thickening, or obvious pericholecystic inflammatory changes. PANCREAS: Unremarkable. SPLEEN: Unremarkable. ADRENAL GLANDS: Unremarkable. KIDNEYS AND URETERS: The kidneys are normal in size, shape, and attenuation. No hydronephrosis, hydroureter, or calculi seen. No perinephric stranding. BLADDER: Unremarkable. GASTROINTESTINAL TRACT: The small and large bowel are unremarkable. The appendix is unremarkable. ABDOMINAL WALL: No significant hernia is appreciated. LYMPH NODES: Normal. VASCULAR: Unremarkable. PELVIC VISCERA: The uterus is retroverted. The uterus is mildly heterogeneous in density lobular contour likely from fibroids. No adnexal abnormality. No fluid in the cul-de-sac. OSSEOUS STRUCTURES: Unremarkable. IMPRESSION: No acute abnormality CT scan abdomen and pelvis. Normal appendix. DICTATED BY: Odin Patel MD DATE/TIME DICTATED:08/03/171654 FEATHER SHAPER:ABRAHAN DATE/TIME TRANSCRIBED:08/03/171654 CONFIDENTIAL, DO NOT COPY WITHOUT APPROPRIATE AUTHORIZATION. <Electronically signed in Other Vendor System> SIGNED BY: Odin Patel MD 08/03/17 5389 Initial ED EKG: none (Zuleika CAMACHOAlma Blair) Departure Departure Disposition: HOME OR SELF CARE Condition: Stable Clinical Impression Primary Impression: Right flank pain Secondary Impressions: Abdominal muscle strain Qualifiers: Encounter type: initial encounter Qualified Code: S39.011A - Strain of muscle, fascia and tendon of abdomen, initial encounter Hypertension Qualifiers: Hypertension type: unspecified Qualified Code: I10 - Essential ( primary) hypertension Pyelonephritis Referrals: Kojo ESCOBAR,Nandini Taylor (PCP/Family) Additional Instructions: Take full course of antibiotics. Increase fluids and rest. You may take Tylenol 650 mg every 6 hours as needed for pain. You may continue tramadol as prescribed. Follow-up with your primary care doctor. Return if you have worsening symptoms or concerns. Please note that there might be incidental findings in your evaluation that are unrelated to the current emergency department visit. Please notify your primary care doctor about this emergency department visit in order to obtain and review all of the testing performed so that these incidental findings can be monitored as needed. If you had an x-ray performed, please understand that some fractures may not be seen on the initial set of x-rays. If your symptoms persist you might need a repeat set of x-rays to check for such a fracture. If you had a laceration evaluated, please understand that foreign bodies such as glass or wood may not be visible to the naked eye or on plain x-rays. If the wound becomes red, swollen, increasingly more painful or if there is any drainage from the wound, please have it reevaluated by a physician for the possibility of a retained foreign body. If you're unable to follow up as outlined in the discharge instructions please return to the emergency department. Thank you for choosing the [facility] Emergency Department for your care. It was a pleasure to serve you today. Departure Forms: Customer Survey General Discharge Information Prescriptions: Current Visit Scripts Ciprofloxacin HCl (Cipro) 1 TAB PO BID #20 TAB (Alma Murcia) PA/INSULATION AND FLOORING ASSEMBLER Co-Sign Statement Statement: ED Attending supervision documentation- [] I saw and evaluated the patient. I have also reviewed all the pertinent lab results and diagnostic results. I agree with the findings and the plan of care as documented in the PA's/INSULATION AND FLOORING ASSEMBLER's documentation. [x] I have reviewed the ED Record and agree with the PA's/INSULATION AND FLOORING ASSEMBLER's documentation. [] Additions or exceptions (if any) to the PAs/INSULATION AND FLOORING ASSEMBLER's note and plan are summarized below: [] (Cesar Ellison DO)
--- NOTE | 2017-08-03 17:03 | CT SCAN REPORT ---
EXAMINATION: CT ABDOMEN AND PELVIS WITH CONTRAST CLINICAL INFORMATION: Right lower quadrant pain. COMPARISON: CT abdomen 05/01/2015. CT scan abdomen pelvis 11/02/2014. TECHNIQUE: Multidetector volumetric imaging was performed of the abdomen and pelvis following IV administration of 95 mL of Optiray 320 intravenous contrast. Sagittal and coronal reformatted images were obtained on the technologist's workstation. DLP: 504.87 mGy-cm FINDINGS: LUNG BASES: The visualized lung bases are unremarkable. LIVER, GALLBLADDER, AND BILIARY TREE: The liver is normal in size, shape, and attenuation. No focal hepatic lesion or biliary ductal dilatation is present. The gallbladder is unremarkable with no evidence of radiopaque gallstones, gallbladder wall thickening, or obvious pericholecystic inflammatory changes. PANCREAS: Unremarkable. SPLEEN: Unremarkable. ADRENAL GLANDS: Unremarkable. KIDNEYS AND URETERS: The kidneys are normal in size, shape, and attenuation. No hydronephrosis, hydroureter, or calculi seen. No perinephric stranding. BLADDER: Unremarkable. GASTROINTESTINAL TRACT: The small and large bowel are unremarkable. The appendix is unremarkable. ABDOMINAL WALL: No significant hernia is appreciated. LYMPH NODES: Normal. VASCULAR: Unremarkable. PELVIC VISCERA: The uterus is retroverted. The uterus is mildly heterogeneous in density lobular contour likely from fibroids. No adnexal abnormality. No fluid in the cul-de-sac. OSSEOUS STRUCTURES: Unremarkable. IMPRESSION: No acute abnormality CT scan abdomen and pelvis. Normal appendix.
[2017-08-03 17:13] VITALS: BP 158/104
[2017-08-03] MEDS ORDERED: CIPRO500 M1 PO (17:33)
== END 2017-08-03 18:30 ==
LOC: ERH 12:55
PROVIDERS: Emergency Medicine
DX: S39.011A Strain of muscle, fascia and tendon of abdomen, initial encounter (principal); N12 Tubulo-interstitial nephritis, not specified as acute or chronic; I10 Essential (primary) hypertension; X58.XXXA Exposure to other specified factors, initial encounter; Y93.9 Activity, unspecified; Y92.9 Unspecified place or not applicable
CPT/HCPCS: 74177; 81001; 81025; 87086; 93005; 93010